=== PATIENT | female | born 1935 | race Caucasian/White ===

== ENCOUNTER 2018-04-09 11:44 | Emergency (ER) | payer MEDICARE, SELFPAY ==
[2018-04-09 11:45] VITALS: BP 236/104; PULSE 78; RESP 18; TEMP 36.6; O2SAT 98; BMI 23.4
[2018-04-09] MEDS: hydrALAZINE 20 MG/ML Vial 10 MG IV (12:50)
[2018-04-09] MEDS: 0.9% Normal Saline 1,000 ML 1000 ML IV (12:50)
[2018-04-09 12:51] VITALS: BP 213/96; PULSE 68; RESP 18; O2SAT 98
[2018-04-09 13:06] LABS: Basophil# 0.01 X10^3/uL; Basophil% 0.1 % (0-1); Eosinophil# 0.07 X10^3/uL; Hematocrit 40.6 % (37-47); Hemoglobin 13.6 g/dl (12.0-15.0); Lymphocyte % 19.3 % (19-41); Mean Corp Hgb Conc 33.5 g/gl (32-36); Mean Corpuscular Hgb 30.8 pg (27.0-32.0); Mean Corpuscular Volume 91.9 fL (81-99); Mean Platelet Vol. 9.8 fl (6.2-12.0); Monocyte# 0.76 X10^3/uL; Monocyte% 10.5 % (0-10); Neutrophil # 5.01 X10^3/uL (2.7-7.7); Platelet Count 336 K/mm3 (150-450); RBC Distribution Width CV 13.1 % (11.6-14.6); RBC Distribution Width SD 43.9 fl (35.1-43.9); Red Blood Count 4.42 M/mm3 (4.2-5.4); White Blood Count 7.3 K/mm3 (4.4-11.0)
[2018-04-09 13:07] LABS: POSITIVE COUNT NO; POSITIVE DIFFERENTIAL NO; POSITIVE MORPHOLOGY NO
[2018-04-09 13:21] LABS: AST(SGOT) 19 U/L (15-37); Alanine Aminotransfer ALT/SGPT 24 U/L (13-56); Alkaline Phosphatase 82 U/L (45-117); Anion Gap 9 (5-15); BUN 6 mg/dL (7-18); Calcium,Total 9.2 mg/dL (8.5-10.1); Chloride 99 mmol/L (98-107); EST Glomerular Filtration Rate 102 mL/min (>60); Est Glom Filt Rate - Afr Amer 123 mL/min (>60); Estimated Creatinine Clearance 31.69 ml/min; Globulin 4.1 g/dL (2.2-4.2); Glucose 96 mg/dL (74-106); Potassium 3.4 mmol/L (3.5-5.1); Protein, Total 8.1 g/dL (6.4-8.2); Sodium Level 137 mmol/L (136-145)
[2018-04-09 13:22] VITALS: BP 183/74; PULSE 86; RESP 22; O2SAT 99
--- NOTE | 2018-04-09 14:03 | ED.DCSUM_ITS ---
- ER Visit Summary Date of Service: 04/09/18 Chief Complaint: Hypertension History of Present Illness: The patient is a 82 F with asymptomatic hypertension. She was found to have a diastolic of about 110 at PCPs office. She has no headache, no vision changes, no chest pain nausea vomiting. She had a gastro-enteritis type symptoms for the past 3 days this has resolved but she was unable to take her blood pressure medication, she started taking it again today. Physical Examination: Not appear in acute distress. Moist mucous membranes, no obvious facial deformity No C-spine tenderness supple neck. Regular rate and rhythm without any obvious murmurs Clear lungs bilaterally speaking in full sentences without any obvious respiratory distress Abdomen soft and nontender no guarding or rebound Moves all extremities without any difficulty or pain. Skin does not show any obvious rashes or lesions, no trauma. Alert oriented ?3 with no gross focal deficit Emergency Department Course and Treatment: Patient was treated, her pressure is now back to normal she will be discharged in stable condition blood work is unremarkable. Impression: Asymptomatic hypertension This note was generated with [employer] dictation software. It may contain incorrect words, spelling, and punctuation that were not noted in review of the chart prior to signing ED Disposition - Plan for ED Patient: Disposition: Home or Assisted Living Chief Complaint: Hypertension Instructions: ED HTN Established Referrals: Tiki Jane NP-C [Primary Care Provider] - 2 Days
[2018-04-09 14:04] VITALS: BP 170/92; PULSE 104; RESP 16; O2SAT 98
== END 2018-04-09 14:11 | disposition home or self-care (01) ==
PROVIDERS: Emergency Provider Emergency Medicine; Family Provider Nurse Practitioner Family; PCP Nurse Practitioner Family
DX: I10 Essential (primary) hypertension (principal); Z79.899 Other long term (current) drug therapy
CPT/HCPCS: 80053; 85025; 96361; 96374; 99283; J7030

== ENCOUNTER → 2019-06-03 10:22 | Outpatient (CLI) | payer MEDICARE, SELFPAY | PROVIDERS: Family Provider Physician Assistant; PCP Physician Assistant; Referring Provider Physician Assistant; Visit Provider Physician Assistant | DX: I49.9 Cardiac arrhythmia, unspecified (principal) | CPT/HCPCS: 93225; 93226 ==

== ENCOUNTER 2021-05-05 13:34 | Emergency (ER) | payer MEDICARE, SELFPAY ==
[2021-05-05 13:35] VITALS: BP 165/68; PULSE 63; RESP 20; TEMP 36.4; O2SAT 95; BMI 18.9
[2021-05-05 13:41] VITALS: BP 165/68; PULSE 62; RESP 18; O2SAT 95
--- NOTE | 2021-05-05 13:57 | CT_ITS ---
EXAM: CT HEAD WITHOUT INTRAVENOUS CONTRAST : 1935 CLINICAL INDICATION: fall TECHNIQUE: Multiple axial images were obtained of the head without intravenous contrast. This CT exam was performed using one or more of the following dose reduction techniques: automated exposure control, adjustment of the mA and/or kV according to patient size, and/or use of iterative reconstruction technique. This report was created using [employer] report generation technology. COMPARISON: None. FINDINGS: BRAIN AND EXTRA-AXIAL SPACES: Ventricular system and cortical sulci are mildly enlarged in size. There is hypoattenuation in the periventricular white matter. No intra- or extra-axial hemorrhage. No evidence of acute infarct. No intracranial mass or mass effect. There is preservation of the cantor/white matter interface. Posterior fossa structures are unremarkable. Basal cisterns are patent. BONES/JOINTS: There is postsurgical change from a small craniectomy posterior to the left mastoid air cells. No discrete lytic or blastic abnormalities. SINUSES: Unremarkable as visualized. Clear. MASTOID AIR CELLS: Unremarkable. Clear. ORBITS: Visualized globes, extraocular muscles, optic nerves and retrobulbar fat appear unremarkable. CT/Brain/Head without Contrast IMPRESSION: 1. No acute intracranial abnormality. 2. Underlying senescent change with small vessel ischemia. Individualized dose optimization techniques were used for this CT. at 1457 Reported and signed by: Deon Chavez MD Electronically Signed: Deon Chavez MD at 14:56 EDT Tel , Service support ,
--- NOTE | 2021-05-05 13:57 | CT_ITS ---
EXAM: CT CERVICAL SPINE WITHOUT INTRAVENOUS CONTRAST : 1935 CLINICAL INDICATION: fall TECHNIQUE: Helically acquired images were obtained of the cervical spine without intravenous contrast. 2D reformatted images were reviewed. This CT exam was performed using one or more of the following dose reduction techniques: automated exposure control, adjustment of the mA and/or kV according to patient size, and/or use of iterative reconstruction technique. This report was created using [employer] report generation technology. COMPARISON: None. FINDINGS: VERTEBRAE: There is minimal anterior spondylolisthesis of C3 on C4 of 2 mm. No fracture. No discrete lytic or blastic abnormality. Normal craniocervical junction and cervicothoracic junction. DISCS/SPINAL CANAL/NEURAL FORAMINA: There is disc space narrowing at C2 - 3, C4-5 and C5-6. SOFT TISSUES: Unremarkable. No prevertebral soft tissue swelling. LYMPH NODES: Unremarkable. No cervical adenopathy. LUNG APICES: Unremarkable as visualized. Clear. CT/Spine Cervical without Contras IMPRESSION: 1. No acute osseous abnormalities of the cervical spine. 2. Degenerative changes with disc space narrowing. Individualized dose optimization techniques were used for this CT. at 1502 Reported and signed by: Deon Chavez MD Electronically Signed: Deon Chavez MD at 15:01 EDT Tel , Service support ,
--- NOTE | 2021-05-05 15:11 | RAD_ITS ---
EXAM: XR LEFT SHOULDER COMPLETE, 2 OR MORE VIEWS : 1935 CLINICAL INDICATION: fall TECHNIQUE: Two or more views of the left shoulder. This report was created using [employer] report generation technology. COMPARISON: None. FINDINGS: BONES/JOINTS: There is a fracture of the midportion of the clavicle. No other fractures are identified. Preservation of the joint space. No sclerotic or destructive changes observed. SOFT TISSUES: Unremarkable. No soft tissue swelling or gas. No radiopaque foreign body. RAD/Shoulder min 2 Views IMPRESSION: Fracture of the clavicle. at 1602 Reported and signed by: Deon Chavez MD Electronically Signed: Deon Chavez MD at 16:01 EDT Tel , Service support ,
--- NOTE | 2021-05-05 15:21 | RAD_ITS ---
EXAM: XR LEFT CLAVICLE COMPLETE, 2 OR MORE VIEWS : 1935 CLINICAL INDICATION: fall TECHNIQUE: Frontal and lordotic views of the left clavicle. This report was created using [employer] report generation technology. COMPARISON: None. FINDINGS: BONES/JOINTS: There is a fracture the midshaft of the clavicle. Preservation of the joint space. No sclerotic or destructive changes observed. SOFT TISSUES: Unremarkable. No soft tissue swelling or gas. No radiopaque foreign body. RAD/Clavicle IMPRESSION: Fracture of the clavicle. at 1603 Reported and signed by: Deon Chavez MD Electronically Signed: Deon Chavez MD at 16:02 EDT Tel , Service support ,
--- NOTE | 2021-05-05 15:35 | ED.VIS.FALL ---
HPI HPI - Fall History of Present Illness Chief Complaint: Fall Informant: patient and spouse/S.O. Occured/Mechanism Occurred: Today Pain/Injury Pain Location: head, neck and upper extremity Quality of Pain: Aching Current Severity: Mild Maximum Severity: Mild Narrative Narrative: Patient presents via EMS after a fall. Patient was out to eat with her at a local restaurant. As they were walking to their states there were 2 small steps to go up. Patient grabbed onto the back of a chair to help support her as she was going up the steps. The chair tipped backwards and patient fell onto both knees and then struck the left side of her forehead and shoulder on a step. states that she was stunned for a minute or 2 after her fall, he is unsure if she completely lost consciousness. Patient denies nausea or vomiting. PFSH PFSH Medical History COPD (chronic obstructive pulmonary disease) Dementia Hyperlipidemia Hypertension Non-smoker Home Medications atorvastatin 40 mg PO QHS 05/05/21 [History Last Taken Unknown] hydrochlorothiazide 12.5 mg PO DAILY 05/05/21 [History Last Taken Unknown] metoprolol tartrate 12.5 mg PO BID 05/05/21 [History Last Taken Unknown] sertraline [Zoloft] 25 mg PO DAILY 05/05/21 [History Last Taken Unknown] simvastatin 20 mg PO DAILY 05/05/21 [History Last Taken Unknown] tramadol [Ultram] 50 mg PO TID PRN #14 tab 05/05/21 [Rx Last Taken Unknown] Allergy/AdvReac Type Severity Reaction Status Date / Time No Known Allergies Allergy Verified 04/09/18 11:47 Surgical History H/O tubal ligation Social History Smoking Status: Never smoker ROS ROS ED Constitutional Constitutional ED: Denies chills or fever(s) Eyes Eyes: Denies change in vision ENT ENT ED: Denies sore throat Cardiovascular Cardiovascular: Denies chest pain Respiratory/Chest Respiratory/Chest: Denies cough or dyspnea Gastrointestinal Gastrointestinal: Denies abdominal pain, diarrhea, nausea or vomiting Genitourinary Genitourinary ED: Denies dysuria Musculoskeletal Musculoskeletal: Reports arthralgias; Denies back pain Integumentary Denies rash Neurologic Neurologic: Reports headache(s); Denies paresthesias or weakness Allergic/Immunologic Allergic/Immunologic ED: Denies urticaria EXAM Physical Exam Const Vital Signs: 05/05/21 13:35 05/05/21 13:41 Temperature 97.6 F L Temperature Source Temporal Pulse Rate 63 62 Respiratory Rate 20 H 18 Respiratory Effort Normal Respiratory Depth Normal Respiratory Pattern Normal Blood Pressure 165/68 H 165/68 H Blood Pressure Mean 100 100 Pulse Ox 95 95 Oxygen Delivery Method Room Air Room Air Positive well nourished and well developed General Appearance ED: well developed HEENT Reports normocephalic and head/scalp atraumatic HEENT Narrative: Left lateral forehead hematoma. No lacerations. Eyes PERRL and EOMs intact bilaterally Neck supple Neck Narrative: No C-spine tenderness. Chest Wall inspection of chest normal and palpation of chest normal Resp normal respiratory effort and clear to auscultation bilaterally Cardio regular rate and regular rhythm GI normal to inspection, nondistended, normoactive bowel sounds Palpation: soft Extremity Extremity Narrative: No reproducible tenderness with palpation over the left shoulder. Good range of motion. Small areas of erythema over the anterior knees with full range of motion and no bony tenderness. Neuro oriented x3 Sensorium / Orientation: alert Psych mental status grossly normal Skin no rashes or lesions noted MDM MDM MDM Narrative Medical decision making narrative: Patient was sent for CT scan of the head and C-spine. Radiography Diagnostic Testing: Radiology Impression Brain CT 05/05/21 13:57 IMPRESSION: 1. No acute intracranial abnormality. 2. Underlying senescent change with small vessel ischemia. Individualized dose optimization techniques were used for this CT. at 1457 Reported and signed by: Deon Chavez MD Electronically Signed: Deon Chavez MD at 14:56 EDT Tel , Service support , Cervical Spine CT 05/05/21 13:57 IMPRESSION: 1. No acute osseous abnormalities of the cervical spine. 2. Degenerative changes with disc space narrowing. Individualized dose optimization techniques were used for this CT. at 1502 Reported and signed by: Deon Chavez MD Electronically Signed: Deon Chavez MD at 15:01 EDT Tel , Service support , Shoulder X-Ray 05/05/21 15:11 IMPRESSION: Fracture of the clavicle. at 1602 Reported and signed by: Deon Chavez MD Electronically Signed: Deon Chavez MD at 16:01 EDT Tel , Service support , Clavicle X-Ray 05/05/21 15:21 IMPRESSION: Fracture of the clavicle. at 1603 Reported and signed by: Deon Chavez MD Electronically Signed: Deon Chavez MD at 16:02 EDT Tel , Service support , Treatment and Re-Evaluation Comments:: CT scans reveal no acute significant findings. On repeat examination patient is having some increased pain in the left shoulder and has difficulty lifting it off of her chest on her own. Left shoulder x-rays indicate a left clavicle fracture. Patient is placed in a sling. does request something stronger than [id number] for pain control and believes that she has done well with tramadol in the past. Prescription will be sent to the pharmacy for them. Orthopedic referral follow-up is given. Discharge Plan Triage Chief Complaint: Fall ED Provider: Aleah Wadsworth Dx/Rx/DC Orders Clinical Impression: Closed head injury, Clavicle fracture Instructions: ED Fracture, Clavicle, ED Head Injury (Adult) Prescriptions: New tramadol [Ultram] 50 mg tablet 50 mg PO TID PRN (Reason: pain) Qty: 14 RF: 0 No Action atorvastatin 40 mg Tablet 40 mg PO QHS RF: 0 simvastatin 20 mg Tablet 20 mg PO DAILY RF: 0 sertraline [Zoloft] 25 mg Tablet 25 mg PO DAILY RF: 0 metoprolol tartrate 25 mg Tablet 12.5 mg PO BID RF: 0 hydrochlorothiazide 12.5 mg Tablet 12.5 mg PO DAILY RF: 0 Primary Care Provider: Radha Campos Referrals: Umberto Prieto MD [STAFF PHYSICIAN] - 5-7 Days Radha Campos PA [Primary Care Provider] - Disposition Disposition: Home, Self Care Discharge Date/Time: 05/05/21 16:16
[2021-05-05 16:13] VITALS: BP 156/106; PULSE 72; RESP 16; O2SAT 98
== END 2021-05-05 16:16 | disposition home or self-care (01) ==
PROVIDERS: Emergency Provider Emergency Medicine; PCP Physician Assistant
DX: S42.022A Displaced fracture of shaft of left clavicle, initial encounter for closed fracture (principal); S00.83XA Contusion of other part of head, initial encounter; W10.9XXA Fall (on) (from) unspecified stairs and steps, initial encounter; Y93.01 Activity, walking, marching and hiking; Y92.511 Restaurant or cafe as the place of occurrence of the external cause; I10 Essential (primary) hypertension; E78.5 Hyperlipidemia, unspecified; F03.90 Unspecified dementia, unspecified severity, without behavioral disturbance, psychotic disturbance, mood disturbance, and anxiety; J44.9 Chronic obstructive pulmonary disease, unspecified; Z79.899 Other long term (current) drug therapy
CPT/HCPCS: 70450; 72125; 73000; 73030; 99284

== ENCOUNTER 2023-10-11 16:05 | Emergency (ER) | payer MEDICARE, SELFPAY ==
[2023-10-11 16:06] VITALS: BP 177/93; PULSE 74; RESP 16; TEMP 36.6; O2SAT 90; BMI 18.9
--- OUTSIDE RECORDS SUMMARY | 2023-10-11 16:20 | XMS RPT_ITS | CCD ---
Author Name Unknown Address [address] [place] [address] Organization [facility] Care Team Providers Care Scale Operator Name Role Phone SANCHEZ FERRERA Admitting Unavailable SANCHEZ FERRERA Attending Unavailable SANCHEZ FERRERA Primary Care Unavailable SANCHEZ FERRERA Consulting Unavailable PROVIDER, UNKNOWN Consulting Unavailable JESÚS KOEHLER Admitting Unavailable JESÚS KOEHLER Attending Unavailable JESÚS KOEHLER Primary Care Unavailable SANCHEZ FERRERA Consulting Unavailable PROVIDER, UNKNOWN Consulting Unavailable Problems Problem Classification Problem Date Documented Da te Episodic/Chronic Osteoarthritis (1 source) Primary osteoarthritis, right wrist; Translations: [Primary osteoarthritis, right wrist] Onset: 04-18-2022 Chronic Other non-traumatic joint disorders (2 sources) Pain in right wrist; Translations: [Pain in right wrist] Onset: 04-18-2022 Episodic Results Test Name Value Interpretation Reference Range Facil ity Encounters Encounter Date Encounter Type Care Provider Facility Start: 04-18-2022 End: 04-18-2022 ambulatory JESÚS KOEHLER [facility] Start: 05-08-2021 End: 05-08-2021 ambulatory SANCHEZ FERRERA [facility] Payers Date Payer Category Payer Unknown [id number] 1935 Unknown [id number] Medicare [id number] Unknown Summary Purpose Family History No Family History Records FoundNo Family History Records Found Advance Directives No Advanced Directives Records FoundNo Advanced Directives Records Found Additional Source Comments INFORMATION SOURCE (unrecogn ized section and content) DATE CREATED AUTHOR AUTHOR'S ORGANIZ ATION 05/15/2023 [facility] FOR RECORDS PERTAINING TO PATIENTS WHO ARE OR HAVE BEEN ENROLLED IN A CHEMICAL DEPENDENCY/SUBSTANCEABUSE PROGRAM, SOME INFORMATION MAY BE OMITTED. This clinical summary was aggregated from multiple sources. Caution should be exercised in using it in the provision of clinical care. This summary normalizes information from multiple sources, and as a consequence, information in this document may materially change the coding, format and clinical context of patient data. In addition, data may be omitted in some cases. CLINICAL DECISIONS SHOULD BE BASED ON THE PRIMARY CLINICAL RECORDS. [facility] [employer] [facility]. provides no warranty or guarantee of the accuracy or completeness of information in this document.
--- NOTE | 2023-10-11 16:34 | EX.ED.DYSGE1 ---
HPI <CHICHI Goddard - Last Filed: 10/11/23 19:21> History of Present Illness Chief Complaint: Fall Narrative Narrative: Patient is a an 87-year-old female with history of hyperlipidemia, hypertension, significant dementia who is on hospice presenting to the emergency department with pain to her right leg after mechanical fall. Patient per the daughter was restless last evening, got out of the kitchen and fell in the kitchen. They got her back to bed however she is unable to put weight on her right leg at this time. Patient states to have only pain to her right hip. The daughter also would like the patient checked for urinary tract infection. She was evaluated by hospice nurse however they would like her evaluated here. PFSH <CHICHI Goddard - Last Filed: 10/11/23 19:21> PFSH Medical History COPD (chronic obstructive pulmonary disease) Dementia Hyperlipidemia Hypertension Non-smoker Home Medications atorvastatin 40 mg tablet 40 mg PO QHS 05/05/21 [History Last Taken Unknown] hydrochlorothiazide 12.5 mg tablet 12.5 mg PO DAILY 05/05/21 [History Last Taken Unknown] metoprolol tartrate 25 mg tablet 12.5 mg PO BID 05/05/21 [History Last Taken Unknown] sertraline 25 mg tablet (Zoloft) 25 mg PO DAILY 05/05/21 [History Last Taken Unknown] simvastatin 20 mg tablet 20 mg PO DAILY 05/05/21 [History Last Taken Unknown] tramadol 50 mg tablet (Ultram) 50 mg PO TID PRN pain #14 tabs 05/05/21 [Rx Last Taken Unknown] Allergy/AdvReac Type Severity Reaction Status Date / Time No Known Allergies Allergy Verified 10/11/23 16:13 Surgical History H/O tubal ligation Social History Smoking Status: Never smoker ROS <CHICHI Goddard - Last Filed: 10/11/23 19:21> ROS ED ROS Narrative Constitutional: Negative for fever, chills, weight loss, weakness Eyes: Negative for vision loss, vision change, double vision ENT: Negative for any sore throat, ear pain, congestion Cardiovascular: Negative for any chest pain, tightness, palpitations Respiratory: Negative for any cough, sputum production, hemoptysis, dyspnea, dyspnea on exertion, orthopnea Gastrointestinal: Negative for any abdominal pain, nausea, vomiting, diarrhea, constipation, blood in stool, blood in vomit : Negative for any urinary frequency, dysuria, retention, blood in urine Muscle skeletal: Negative for any myalgias, arthralgias, neck pain, back pain. Positive for pain to the right hip Neurological: Negative for any headache, syncope, paresthesias, dizziness Skin: Negative for any rashes, lumps, itching, abrasions, lacerations Psychiatric: Negative for any depression, anxiety, stress, suicidal ideation, homicidal ideation Hematologic: Negative for any easy bruising, excessive bruising, easy bleeding Allergies: Negative for any eczema, hives, rash EXAM <CHICHI Goddard - Last Filed: 10/11/23 19:21> Physical Exam Narrative Exam Narrative: Vital signs reviewed. Patient alert and orient x 1. HEET: Head normocephalic atraumatic, TMs clear bilaterally. Posterior pharynx is clear, moist mucous membranes. Nares clear bilaterally. Pupils are equal round and reactive to light. Neck: Supple with no lymphadenopathy or tenderness. No signs of meningismus. Cardiac: Regular rate and rhythm no murmurs gallops or rubs, equal peripheral pulses bilaterally. Respiratory: Lungs clear to auscultation bilaterally. No chest tenderness. Abdomen: Soft, nontender, nondistended. No abdominal bruit or pulsatile masses. No hepatosplenomegaly Extremities: No peripheral edema, no signs of gross trauma or deformity. Active full range of motion of all extremities. Patient was able to flex and extend the right hip, patient did have slight discomfort with flexion. Pain with slight knee flexion. Negative logroll, no shortening or internal rotation. Neuro: Cranial nerves II through XII intact, no focal neurological deficits. Skin: Clean dry and intact with no rash, purpura, petechiae, vesicles or pustules. Backs/flank: No CVA tenderness, no midline spinal tenderness, no deformity. Psych: Normal mood and affect. No SI, HI or acute psychosis. Const Vital Signs: 10/11/23 16:06 10/11/23 16:18 10/11/23 18:47 Temperature 97.8 F Temperature Source Temporal Pulse Rate 74 80 Respiratory Rate 16 18 Respiratory Effort Normal Respiratory Depth Normal Respiratory Pattern Normal Blood Pressure 177/93 H 187/99 H Blood Pressure Mean 121 128 Pulse Ox 90 96 Oxygen Delivery Method Room Air Room Air <Dr. Yong Iniguez DO - Last Filed: 10/11/23 19:28> Physical Exam Const Vital Signs: 10/11/23 16:06 10/11/23 16:18 10/11/23 18:47 Temperature 97.8 F Temperature Source Temporal Pulse Rate 74 80 Respiratory Rate 16 18 Respiratory Effort Normal Respiratory Depth Normal Respiratory Pattern Normal Blood Pressure 177/93 H 187/99 H Blood Pressure Mean 121 128 Pulse Ox 90 96 Oxygen Delivery Method Room Air Room Air [facility] <CHICHI Goddard - Last Filed: 10/11/23 19:21> [facility] Lab Data Labs: Laboratory Results - last 24 hr 10/11/23 17:42 Urine Color Yellow Urine Clarity Clear Urine pH 6.5 Ur Specific [place] 1.015 Urine Protein 15 H Urine Glucose (UA) Normal Urine Ketones 15 H Urine Occult Blood 25 H Urine Nitrite Negative Urine Bilirubin Negative Urine Urobilinogen Normal Ur Leukocyte Esterase 25 H Urine RBC 0-5 SEEN Urine WBC 5-10 SEEN Ur Squamous Epith Cells 0 SEEN Urine Bacteria 0 SEEN Hyaline Casts 0-5 SEEN Urine Mucus 0 SEEN Radiography Diagnostic Testing: Clinical Impression(s) from Imaging Studies Femur X-Ray 10/11/23 17:00 IMPRESSION: Right pubic rami fractures. Electronically Signed: Abel Flores DO at 18:10 EST , Pelvis X-Ray 10/11/23 17:00 IMPRESSION: Right pubic rami fractures. Electronically Signed: Abel Flores DO at 18:11 EST , Treatment and Re-Evaluation :: Patient appears generally well, patient appears nontoxic, vital signs are stable. Presenting to the emergency department with complaints of right leg pain after mechanical fall that occurred last evening. Patient is on hospice, lives with her daughter. Patient differential diagnosis includes right hip fracture, femur fracture, hip contusion. Patient received x-rays of the right hip, femur as well as the right knee. Patient will also be straight cathed for urine, the daughter states that she was more irritated and she is concerned for a possible UTI. Patient's urinalysis was negative for any infection. Patient's x-ray of the pelvis shows right pubic rami fractures. I did speak with the patient as well as the patient's family. Patient was medicated for pain control, however patient was unable to get up and bear weight even using a walker. At this time, I spoke with the patient, the patient's sisters, the POA, patient will need to be admitted to the hospital. I reached out to hospitalist, the plan will be to admit the patient to observation and see what the plan will be whether the patient can return home with hospice or go to a SNF. All questions are answered, patient stable for admission. <Dr. Yong Iniguez, - Last Filed: 10/11/23 19:28> [facility] Lab Data Labs: Laboratory Results - last 24 hr 10/11/23 17:42 Urine Color Yellow Urine Clarity Clear Urine pH 6.5 Ur Specific [place] 1.015 Urine Protein 15 H Urine Glucose (UA) Normal Urine Ketones 15 H Urine Occult Blood 25 H Urine Nitrite Negative Urine Bilirubin Negative Urine Urobilinogen Normal Ur Leukocyte Esterase 25 H Urine RBC 0-5 SEEN Urine WBC 5-10 SEEN Ur Squamous Epith Cells 0 SEEN Urine Bacteria 0 SEEN Hyaline Casts 0-5 SEEN Urine Mucus 0 SEEN Radiography Diagnostic Testing: Clinical Impression(s) from Imaging Studies Femur X-Ray 10/11/23 17:00 IMPRESSION: Right pubic rami fractures. Electronically Signed: Abel Flores DO at 18:10 EST , Pelvis X-Ray 10/11/23 17:00 IMPRESSION: Right pubic rami fractures. Electronically Signed: Abel Flores DO at 18:11 EST , Treatment and Re-Evaluation :: Patient appears generally well, patient appears nontoxic, vital signs are stable. Presenting to the emergency department with complaints of right leg pain after mechanical fall that occurred last evening. Patient is on hospice, lives with her daughter. Patient differential diagnosis includes right hip fracture, femur fracture, hip contusion. Patient received x-rays of the right hip, femur as well as the right knee. Patient will also be straight cathed for urine, the daughter states that she was more irritated and she is concerned for a possible UTI. Patient's urinalysis was negative for any infection. Patient's x-ray of the pelvis shows right pubic rami fractures. I did speak with the patient as well as the patient's family. Patient was medicated for pain control, however patient was unable to get up and bear weight even using a walker. At this time, I spoke with the patient, the patient's sisters, the POA, patient will need to be admitted to the hospital. I reached out to hospitalist, the plan will be to admit the patient to observation and see what the plan will be whether the patient can return home with hospice or go to a SNF. All questions are answered, patient stable for admission. I have personally performed a face to face assessment of the patient and have reviewed the ROSA Note. I performed a substantive portion of the visit including all aspects of the following. My ernst findings include: History is 87-year-old female on hospice care for dementia. Patient sustained a fall during the night and has been unable to bear weight. Family was able to get into wheelchair and get into bed. She is trying to put weight on it for transferring but it continues to hurt. Exam is tender to palpation over the superior pubic rami. Negative logroll. Neurovascular intact. Medical Decison Making my independent or potation of the plain films of the right hip and pelvis is superior inferior pubic rami fracture. Patient could not ambulate or bear weight. I do not think there [facility] to take her home tonight. We will admit here tonight. We will be able to get with hospice and figure out if she will need to go to fdc/rehab versus hospice care center versus home with in-home care and hospital bed etc. Discharge Plan Dx/Rx/DC Orders Clinical Impression: Intractable back pain, Closed fracture of pubic ramus, Inability to walk, Fall Disposition Disposition: Acute Care Hospital [facility]
--- NOTE | 2023-10-11 17:00 | RAD_ITS ---
INDICATION: fall EXAMINATION/TECHNIQUE: X-RAY - XR Pelvis 1 or 2 Views COMPARISON: FINDINGS: PELVIC BONES: Right pubic rami fractures. Note that overlapping bowel shadows may however obscure fine detail. Sacroiliac joints are unremarkable. No widening of the pubic symphysis. HIPS: The articular structures are unremarkable. There is an intramedullary sudarshan of the left femur No displaced fracture seen in this frontal view. SOFT TISSUES: No soft tissue swelling or gas. RAD/Pelvis 1 or 2 Views IMPRESSION: Right pubic rami fractures. Electronically Signed: Abel Flores DO at 18:11 EST Reading Location ID and State: [facility] / [place] Tel [phone], Service support ,
--- NOTE | 2023-10-11 17:00 | RAD_ITS ---
INDICATION: fall EXAMINATION/TECHNIQUE: X-RAY - RIGHT XR Femur Min 2 Views 4 VIEWS COMPARISON: FINDINGS: SOFT TISSUES: No soft tissue swelling or gas. No radiopaque foreign body. BONES/JOINTS: There are right pubic rami fractures.. Degenerative changes and mild effusion at the knee. No sclerotic or destructive changes observed. RAD/Femur Min 2 Views IMPRESSION: Right pubic rami fractures. Electronically Signed: Abel Flores DO at 18:10 EST ,
[2023-10-11 17:51] LABS: Bacteria 0 SEEN /hpf (None Seen); Mucous, Urine 0 SEEN /hpf (<or=2+); Squamous Epithelial Cells - UA 0 SEEN /hpf (5-10)
[2023-10-11 17:53] LABS: Color, Urine Yellow (Yellow); Glucose, Dipstick Normal (Normal); Ketone-Dipstick 15 mg/dl (Negative); Leukocyte Esterase-Dipstick 25 /ul (Negative); Nitrite-Dipstick Negative (Negative); Occult Blood-Urine 25 /ul (Negative); Protein-Dipstick 15 mg/dl (Negative); Specific Gravity, Urine 1.015 (1.002-1.030); Urine Bilirubin Dipstick Negative (Negative); Urine Clarity Clear (Clear); Urine Urobilinogen Normal (Normal); Urine pH 6.5 (5.0 - 8.0)
[2023-10-11 18:05] LABS: Hyaline Cast 0-5 SEEN /lpf (0-5); Red Blood Cells-Urine 0-5 SEEN /hpf (0-5); White Blood Cells 5-10 SEEN /hpf (0-5)
[2023-10-11] MEDS: HYDROcodone Bitartrate/Apap 5/325 Tablet PO (18:40)
[2023-10-11 18:47] VITALS: BP 187/99; PULSE 80; RESP 18; O2SAT 96
--- NOTE | 2023-10-11 19:03 | PCM.HP.STD ---
HPI - General General Date of Admission: 10/11/23 HPI Narrative ZANE ESTRADA, is a 87 F who presents PFSH Medical History COPD (chronic obstructive pulmonary disease) Dementia Hyperlipidemia Hypertension Non-smoker Home Medications atorvastatin 40 mg tablet 40 mg PO QHS 05/05/21 [History Last Taken Unknown] hydrochlorothiazide 12.5 mg tablet 12.5 mg PO DAILY 05/05/21 [History Last Taken Unknown] metoprolol tartrate 25 mg tablet 12.5 mg PO BID 05/05/21 [History Last Taken Unknown] sertraline 25 mg tablet (Zoloft) 25 mg PO DAILY 05/05/21 [History Last Taken Unknown] simvastatin 20 mg tablet 20 mg PO DAILY 05/05/21 [History Last Taken Unknown] tramadol 50 mg tablet (Ultram) 50 mg PO TID PRN pain #14 tabs 05/05/21 [Rx Last Taken Unknown] Allergy/AdvReac Type Severity Reaction Status Date / Time No Known Allergies Allergy Verified 10/11/23 16:13 Surgical History H/O tubal ligation Social History Smoking Status: Never smoker Vital Signs Vital Signs Vital Signs: 10/11/23 16:06 10/11/23 16:18 10/11/23 18:47 Temperature 97.8 F Temperature Source Temporal Pulse Rate 74 80 Respiratory Rate 16 18 Respiratory Effort Normal Respiratory Depth Normal Respiratory Pattern Normal Blood Pressure 177/93 H 187/99 H Blood Pressure Mean 121 128 Pulse Ox 90 96 Oxygen Delivery Method Room Air Room Air Weight Weight: 51.7 kg Body Mass Index (BMI) 18.9 Results Lab / Micro Data Labs: Laboratory Results - last 24 hr 10/11/23 17:42: Urine Color Yellow, Urine Clarity Clear, Urine pH 6.5, Ur Specific [place] 1.015, Urine Protein 15 H, Urine Glucose (UA) Normal, Urine Ketones 15 H, Urine Occult Blood 25 H, Urine Nitrite Negative, Urine Bilirubin Negative, Urine Urobilinogen Normal, Ur Leukocyte Esterase 25 H, Urine RBC 0-5 SEEN, Urine WBC 5-10 SEEN, Ur Squamous Epith Cells 0 SEEN, Urine Bacteria 0 SEEN, Hyaline Casts 0-5 SEEN, Urine Mucus 0 SEEN Imaging Radiology Impression Femur X-Ray 10/11/23 17:00 IMPRESSION: Right pubic rami fractures. Electronically Signed: Abel Flores DO at 18:10 EST , Pelvis X-Ray 10/11/23 17:00 IMPRESSION: Right pubic rami fractures. Electronically Signed: Abel Flores DO at 18:11 EST , Assessment & Plan Assessment/Plan PLAN: Plan Fall with right pubic rami fractures?PT/OT/case management, orthopedics? Hospice patient?on home hospice, lives with daughter, on hospice for significant dementia? No UTI, follow-up labs
--- OUTSIDE RECORDS SUMMARY | 2023-10-11 19:37 | XMS RPT_ITS | CCD ---
Author Name Unknown Address [facility] [address] [place] [address] Organization [facility] Care Team Providers Care Copy Manager Name Role Phone SANCHEZ FERRERA Admitting Unavailable [...] Facility Start: 04-18-2022 End: 04-18-2022 ambulatory JESÚS MAGGIESULLYKAYLEIGH [facility] Start: 05-08-2021 End: 05-08-2021 ambulatory SANCHEZ FERRERA [facility] Payers Date Payer Category Payer Unknown [id number] 1935 Unknown [id number] Medicare [id number] Unknown Summary Purpose Family History No Family [...] BE BASED ON THE PRIMARY CLINICAL RECORDS. [facility] [employer] [facility]. provides no warranty or guarantee of the accuracy or completeness of information in this document.
[2023-10-11 19:49] LABS: Absolute Lymphocyte Count 1.76 X10^3/uL (0.83-4.51); Absolute Neutrophil Count 10.3 X10^3/uL (2.0-7.7); Basophil# 0.03 X10^3/uL; Basophil% 0.2 % (0-1); Eosinophil# 0.01 X10^3/uL; Eosinophils% 0.1 % (0-5); Hematocrit 39.1 % (37-47); Hemoglobin 12.8 g/dL (12.0-15.0); Lymphocyte # 1.76 X10^3/ul (0.83-4.51); Lymphocyte % 13.3 % (19-41); Mean Corp Hgb Conc 32.7 g/dL (32-36); Mean Corpuscular Hgb 30.1 pg (27.0-32.0); Mean Platelet Vol. 9.7 fl (6.2-12.0); Monocyte# 1.05 X10^3/uL; Monocyte% 7.9 % (0-10); NRBC Flagged by Analyzer 0 % (0-5); Neutrophil # 10.34 X10^3/uL (2.7-7.7); Neutrophil % 78.2 % (47-70); Platelet Count 299 K/mm3 (150-450); RBC Distribution Width CV 12.8 % (11.6-14.6); Red Blood Count 4.25 M/mm3 (4.2-5.4); White Blood Count 13.2 K/mm3 (4.4-11.0)
--- OUTSIDE RECORDS SUMMARY | 2023-10-11 19:59 | XMS RPT_ITS | CCD ---
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 [facility]. provides no warranty or guarantee of the accuracy or completeness of information in this document.
[2023-10-11 20:02] LABS: Anion Gap 4 (5-15); BUN 13 mg/dL (7-18); BUN/Creat Ratio 21.2 RATIO (10-20); Calcium,Total 8.8 mg/dL (8.5-10.1); Chloride 103 mmol/L (98-107); Creatinine, Serum 0.61 mg/dL (0.55-1.02); EST Glomerular Filtration Rate 98 mL/min (>60); Est Glom Filt Rate - Afr Amer 119 mL/min (>60); Glucose 140 mg/dL (74-106); Potassium 3.5 mmol/L (3.5-5.1); Sodium Level 135 mmol/L (136-145)
--- NOTE | 2023-10-11 21:08 | PCM.HOSP.N ---
Hospitalist Note Patient presented to the ED with significant right leg pain and inability to walk after a fall at home last night, as well as mild altered mentation per patient's daughters. Was found to have a fracture of the pubic rami on x-ray. Labs showed a mildly elevated white blood cell count of 13, otherwise were fairly benign. UA notably was benign, not concerning for UTI. Discussed with ED physician and saw patient at the bedside and discussed situation with her daughters. Because the pubic rami fracture is non?operable, patient does not require admission and instead can go directly to inpatient hospice care for further management. Discussed with [facility] hospice nurse here this evening and they have an inpatient unit bed available for the patient. Will transport there later this evening.
[2023-10-11 22:55] VITALS: BP 131/61; PULSE 78; RESP 16; O2SAT 92
== END 2023-10-11 22:59 | disposition short-term general hospital (02) ==
LOC: ED 19:21 → MS3 19:56
PROVIDERS: Nurse Practitioner; Emergency Provider Hospitalist; PCP Physician Assistant; Visit Provider Hospitalist
DX: S32.501A Unspecified fracture of right pubis, initial encounter for closed fracture (principal); F03.90 Unspecified dementia, unspecified severity, without behavioral disturbance, psychotic disturbance, mood disturbance, and anxiety; J44.9 Chronic obstructive pulmonary disease, unspecified; M54.9 Dorsalgia, unspecified; I10 Essential (primary) hypertension; R26.2 Difficulty in walking, not elsewhere classified; E78.5 Hyperlipidemia, unspecified; W19.XXXA Unspecified fall, initial encounter; Z79.899 Other long term (current) drug therapy
CPT/HCPCS: 72170; 73552; 80048; 81001; 85025; 99284; P9612; A4216